=== PATIENT | female | born 1980 | race Caucasian/White ===

== ENCOUNTER 2016-09-10 17:39 | Emergency (ER) | payer OTHER ==
[~2016-09-10] VITALS: Ht 170.2 cm; Wt 110.6 kg
[~2016-09-10 17:39] MED LIST: Colace PO; DOCUSATE SODIU100 MG PO; ENDOCET 5-3251 EACH PO; FLEXERIL5 MG PO; Feosol PO; IBUPROFEN800 MG PO; IRON325 MG PO; LOSARTAN POTASS50 MG PO; MOTRIN800 MG PO; Motrin PO; PERCOCET 5/31 TABLET PO; PREFERA-OB P1 TABLET PO; PROZAC40 MG PO; Percocet 5/325,Endoc PO; RANITIDINE HCL150 MG PO; TYLENOL EXTRA500 MG PO; VICODIN 5-3001 EACH PO; VITAMIN B-121000 MCG PO; ZOFRAN4 MG PO
[2016-09-10 18:46] LABS: MCHC 33.2 G/DL (30.0-36.0); MCV 84.4 FL (83-99); PLATELET COUNT 306 K/uL (156-360); RBC DIS.WIDTH-CV 13.7 % (11.8-14.6); RBC DIS.WIDTH-SD 40.9 % (39-53); RED BLOOD COUNT 4.03 M/uL (3.80-5.20); WHITE BLOOD COUNT 8.2 K/uL (4.1-10.2)
[2016-09-10 18:51] LABS: CHLORIDE 105 mEq/L (99-109); POTASSIUM 4.3 mEq/L (3.7-5.4); SODIUM 141 mEq/L (136-147)
[2016-09-10 18:53] LABS: GLUCOSE 94 mg/dL (70-99)
[2016-09-10 18:54] LABS: ANION GAP 9 MEQ/L (2-14)
[2016-09-10 18:57] LABS: GFR ESTIMATE (CALCULATED) > 59 mL/min/
[2016-09-10 18:58] LABS: UREA NITROGEN (BUN) 10 mg/dL (9-23)
[2016-09-10 19:03] LABS: TROP-I INTERPRETATION NEGATIVE; TROPONIN-I < 0.01 ng/mL (0.0-0.30)
[2016-09-10 22:03] LABS: TROP-I INTERPRETATION NEGATIVE; TROPONIN-I < 0.01 ng/mL (0.0-0.30)
[2016-09-10] MEDS ORDERED: ZANTAC150 MG PO (23:39)
[2016-09-11 01:09] LABS: D-DIMER ELISA 0.19 mg/L FEU (< 0.57)
[2016-09-11] MEDS ORDERED: MOTRIN600 MG PO (02:10)
[2016-09-11] MEDS ORDERED: LORTAB 5-325 M1 EACH PO (02:10)
[2016-09-11 02:38] VITALS: BP 128/63
== END 2016-09-11 02:39 | disposition home or self-care (01) ==
LOC: EME 17:39
PROVIDERS: Emergency Medicine
DX: R07.9 Chest pain, unspecified (principal); R09.1 Pleurisy; I10 Essential (primary) hypertension
CPT/HCPCS: 71020; 80048; 84484; 84702; 85027; 85379; 93005; 99281; 99285; J1885; J2270; J2405

== ENCOUNTER 2018-01-11 15:00 | Emergency (ER) | payer OTHER ==
[~2018-01-11] VITALS: Ht 170.2 cm; Wt 113.6 kg
[~2018-01-11 15:00] MED LIST changes: +LORTAB 5-325 M1 EACH PO; +MOTRIN600 MG PO; +ZANTAC150 MG PO
[2018-01-11 15:44] LABS: HEMATOCRIT 33.2 % (36.0-46.0); HEMOGLOBIN 11.4 G/DL (11.9-15.5); MCH 29.5 PG (29.0-34.0); MCHC 34.3 G/DL (30.0-36.0); MCV 85.8 FL (83-99); PLATELET COUNT 260 K/uL (156-360); RBC DIS.WIDTH-CV 13.4 % (11.8-14.6); RBC DIS.WIDTH-SD 41.1 % (39-53); RED BLOOD COUNT 3.87 M/uL (3.80-5.20); WHITE BLOOD COUNT 8.5 K/uL (4.1-10.2)
[2018-01-11 15:55] LABS: CHLORIDE 102 mEq/L (99-109); POTASSIUM 3.9 mEq/L (3.7-5.4); SODIUM 138 mEq/L (136-147)
[2018-01-11 15:57] LABS: GLUCOSE 141 mg/dL (70-99)
[2018-01-11 16:01] LABS: CREATININE 0.7 mg/dL (0.6-1.3); GFR ESTIMATE (CALCULATED) > 59 mL/min/
[2018-01-11 16:02] LABS: UREA NITROGEN (BUN) 12 mg/dL (9-23)
[2018-01-11 16:08] LABS: TROP-I INTERPRETATION NEGATIVE; TROPONIN-I < 0.01 ng/mL (0.0-0.30)
[2018-01-11 16:16] LABS: D-DIMER ELISA < 150.00 ng/mLDDU (<230)
[2018-01-11] MEDS ORDERED: BUSPAR10 MG PO (16:20)
[2018-01-11] MEDS ORDERED: BUPROPION XL300 MG PO (16:20)
[2018-01-11 18:19] LABS: TROP-I INTERPRETATION NEGATIVE; TROPONIN-I < 0.01 ng/mL (0.0-0.30)
[2018-01-11 19:51] VITALS: BP 113/62
== END 2018-01-11 19:51 | disposition home or self-care (01) ==
LOC: EME 15:00
PROVIDERS: Emergency Medicine
DX: R07.89 Other chest pain (principal); I10 Essential (primary) hypertension
CPT/HCPCS: 71046; 80048; 84484; 85027; 85379; 93005; 93971; 99281; 99284